=== PATIENT | male | born 1980 | race Caucasian/White ===

== ENCOUNTER 2024-01-30 02:11 | Emergency (ER) | payer OTHER ==
[~2024-01-30] VITALS: Ht 180.3 cm; Wt 120.2 kg
[2024-01-30 02:12] VITALS: BP 139/97; PULSE 125; RESP 18; TEMP 97.7; O2SAT 97
[2024-01-30 02:16] VITALS: TEMP 97.7
[2024-01-30] MEDS: KETOROLAC 30 MG/ML VIAL IVP ONE (02:49)
[2024-01-30 02:50] VITALS: BP 124/75; PULSE 119; RESP 18; O2SAT 97
[2024-01-30] MEDS: MORPHINE SULFATE 10 MG/ML VIAL IVP ONE (02:50)
[2024-01-30] MEDS ORDERED: IBUP-2213 PO (04:34)
[2024-01-30] MEDS ORDERED: ACET-8905 PO (04:34)
[2024-01-30] MEDS: oxyCODONE/APAP 5/325 MG 1 TAB TAB PO ONE (05:34)
== END 2024-01-30 04:55 | disposition home or self-care (01) ==
LOC: MED 02:11
DX: S42.201A Unspecified fracture of upper end of right humerus, initial encounter for closed fracture (principal); Z79.899 Other long term (current) drug therapy; W18.39XA Other fall on same level, initial encounter; Y92.89 Other specified places as the place of occurrence of the external cause; Y93.89 Activity, other specified; Y99.8 Other external cause status
CPT/HCPCS: 73030; 96374; 96375; 99284; J1885; J2270; Q0092